=== PATIENT | female | born 1985 | race Caucasian/White ===

== ENCOUNTER 2019-04-30 15:23 | Emergency (ER) | payer BC, OTHER ==
[2019-04-30 15:27] VITALS: BP 124/70; PULSE 97; TEMP 98; BMI 22.7
[2019-04-30 16:41] LABS: BASO % 0.2 % (0-2.0); EOS % 0.4 % (0-4.5); HEMATOCRIT 36.5 % (32.4-45.2); HEMOGLOBIN 12.7 GM/dL (10.7-15.3); LYMPH % 21.1 % (8-40); MCHC 34.9 g/dl (32.0-36.0); MEAN PLT VOLUME 7.3 fl (7.5-11.1); MONO % 7.1 % (3.8-10.2); NEUT % 71.2 % (42.8-82.8); PLATELET COUNT 313 K/MM3 (134-434); RDW 12.4 % (11.6-15.6); WHITE BLOOD COUNT 8.2 K/mm3 (4.0-10.0)
[2019-04-30 16:44] LABS: EPI CELLS 1.7 /HPF (0-5/HPF); HYALINE CASTS 1 /lpf (0-8); URINE APPEARANCE CLEAR; URINE BACTERIA 64.1 /hpf (NEGATIVE); URINE BILIRUBIN NEGATIVE (NEGATIVE); URINE COLOR YELLOW; URINE GLUCOSE (UA) NEGATIVE (NEGATIVE); URINE KETONE NEGATIVE (NEGATIVE); URINE LEUK ESTERASE NEGATIVE (NEGATIVE); URINE NITRITE NEGATIVE (NEGATIVE); URINE PROTEIN NEGATIVE (NEGATIVE); URINE RBC 2 /hpf (0-4); URINE UROBILINOGEN 0.2 mg/dL (0.2-1.0); URINE WBC 1 /hpf (0-5)
--- NOTE | 2019-04-30 17:11 | PDOC ---
Attending Attestation - Resident Resident Name: Silas Birch - ED Attending Attestation I have performed the following: I have examined & evaluated the patient, The case was reviewed & discussed with the resident, I agree w/resident's findings & plan, Exceptions are as noted - HPI HPI: 04/30/19 18:08 Ms. Bland is a 34 y/o F with no pmh presenting with vaginal bleeding that started 1.5 hrs prior to arrival in the ER. Bleeding began while at work. When she went to the bathroom, she noted profuse bleeding with large blood clos. (+) cramping, rated 2/10 Denies fevers, nausea, vomiting, headache As far as she knows, her most recent ultrasound wa 6 days ago and was normal Patient has no hx of uti/sti. PMHx: as noted above ROS: as noted SHx: Denies tobacco use; no alcohol use; no rec drugs Allergies: NKDA - Physicial Exam PE: 04/30/19 17:11 GENERAL: The patient is in no acute distress. ENT: Ears normal, nares patent, oropharynx clear without exudates. Moist mucous membranes. NECK: Normal range of motion, supple LUNGS: Breath sounds equal, clear to auscultation bilaterally. No wheezes, and no crackles. HEART:Regular rate and rhythm, normal S1 and S2 without murmur, rub or gallop. ABDOMEN: Soft, nontender, normoactive bowel sounds. PELVIC: per Dr. Birch EXTREMITIES: Normal range of motion, no edema. NEUROLOGICAL: Cranial nerves II through XII grossly intact. Normal speech. No focal neurological deficits. SKIN: Warm, Dry, normal turgor, no rashes or lesions noted. 04/30/19 18:11 - Medical Decision Making 04/30/19 18:05 Laboratory Tests 04/30/19 04/30/19 04/30/19 16:20 16:20 16:20 Hgb 12.7 Hct 36.5 BUN 9.2 Creatinine 0.5 L Beta HCG, Quant 88336.9 Urine Blood Urine Nitrite Ur Leukocyte Esterase Urine WBC (Auto) Urine Bacteria (Auto) Blood Type O POSITIVE 04/30/19 16:20 Hgb Hct BUN Creatinine Beta HCG, Quant Urine Blood 2+ H Urine Nitrite Negative Ur Leukocyte Esterase Negative Urine WBC (Auto) 1 Urine Bacteria (Auto) 64.1 Blood Type 04/30/19 18:05 U/S: IUP 13 5/7, FHR: 154bpm, mniotic fluid unremarkable, left ovatian follicle/ cyst noted, Nonspecific partially exophytic 7 x 6.5 cm soft tissue structure wiht an irregular fluid component centrally which may be secondary to necrosis or degeneration (leiomyoma vs neoplasm) 04/30/19 18:[address] Thompson He would like this patient to be discharged to home Follow up tomorrow clinical impression: Vaginal bleeding in , initial presentation I discussed the physical exam findings, ancillary test results and final diagnoses with the patient. I answered all of the patient's questions. The patient was satisfied with the care received and felt comfortable with the discharge plan and treatment plan. The patient will call their primary care physician within 24 hours to arrange follow-up and will return to the Emergency Department with any new, persistant or worsening symptoms. She understands that it is extremely important that she sees her physician within 24-48 hours for a repeat visit, including repeat blood work.
--- NOTE | 2019-04-30 17:17 | PDOC ---
History of Present Illness - General Chief Complaint: Vaginal Bleeding Stated Complaint: 13 WEEKS/VAG BLEED Time Seen by Provider: 04/30/19 15:44 - History of Present Illness Initial Comments: 04/30/19 17:02 HPI: 34 y/o F with no pmh presenting with vaginal bleeding that started 1.5hrs ago. She was at work sitting down when she felt her pants wet. When she went to the bathroom, she noted profuse bleeding through her underwear and pants with large blood clots. She felt some cramping similar to period cramping that was only 2/10 on the pain scale. She denies fever, n/v, DUMONT, LH, dysuria. She follows with Dr Ingram and last followed up in clinic 6 days ago and US showed normal . Patient has no hx of uti/sti. No hx of miscarriage or . Vaginal vault with blood, or discharge. External cervical os partially open and able to insert distal half of my DIP joint. PMHx: as noted above ROS: as noted SHx: Denies tobacco use; no alcohol use; no rec drugs Allergies: NKDA ROS: GENERAL/CONSTITUTIONAL: No fever or chills. No weakness. HEAD, EYES, EARS, NOSE AND THROAT: No change in vision. No ear pain or discharge. No sore throat. CARDIOVASCULAR: No chest pain or shortness of breath RESPIRATORY: No cough, wheezing, or hemoptysis. GASTROINTESTINAL: No nausea, vomiting, diarrhea or constipation. GENITOURINARY: No dysuria, frequency, or change in urination. MUSCULOSKELETAL: No joint or muscle swelling or pain. No neck or back pain. SKIN: No rash NEUROLOGIC: No headache, vertigo, loss of consciousness, or change in strength/ sensation. ENDOCRINE: No increased thirst. No abnormal weight change HEMATOLOGIC/LYMPHATIC: No anemia, easy bleeding, or history of blood clots. ALLERGIC/IMMUNOLOGIC: No hives or skin allergy. PE: GENERAL: Awake, alert, and fully oriented, no acute distress HEAD: No signs of trauma, normocephalic, atraumatic EYES: EOMI, sclera anicteric, conjunctiva clear ENT: Auricles normal inspection, hearing grossly normal, nares patent, oropharynx clear without exudates. Moist mucosa NECK: Normal ROM, no lymphadenopathy LUNGS: No increased work of breathing, symmetrical chest rise, clear to auscultation bilaterally, no wheezes, crackles or rhonchi HEART: Regular rate and rhythm, normal S1 and S2, no murmurs, peripheral pulses 2+ and equal bilaterally. ABDOMEN: Soft, nondistended, nontender, normoactive bowel sounds. No guarding, no rebound. No masses. No CVAT GENITOURINARY: Nml appearing external genitalia, with absent lesions. Vaginal vault with blood, or discharge. External cervical os partially open and able to insert distal half of my DIP joint. Neg CMT on BM. Neg adenexal ttp, or mass palpated. MUSCULOSKELETAL: Normal inspection, FROM NEUROLOGICAL: Cranial nerves II through XII grossly intact. Normal speech, normal gait, no focal sensorimotor deficits SKIN: Warm, Dry, normal turgor, no rashes or lesions noted Past History - Past Medical History Allergies/Adverse Reactions: Allergies Allergy/AdvReac Type Severity Reaction Status Date / Time No Known Allergies Allergy Verified 04/30/19 15:27 COPD: No - Psycho Social/Smoking Cessation Hx Smoking History: Never smoked *Physical Exam - Vital Signs Last Vital Signs Temp Pulse Resp BP Pulse Ox 98 F 97 H 18 124/70 100 04/30/19 15:25 04/30/19 15:25 04/30/19 15:25 04/30/19 15:25 04/30/19 15:25 ED Treatment Course - LABORATORY CBC & Chemistry Diagram: 04/30/19 16:20 04/30/19 16:20 - ADDITIONAL ORDERS Additional order review: Laboratory Results 04/30/19 16:20 Urine Color Yellow Urine Appearance Clear Urine pH 5.0 Ur Specific [place] 1.008 L Urine Protein Negative Urine Glucose (UA) Negative Urine Ketones Negative Urine Blood 2+ H Urine Nitrite Negative Urine Bilirubin Negative Urine Urobilinogen 0.2 Ur Leukocyte Esterase Negative Urine WBC (Auto) 1 Urine RBC (Auto) 2 Urine Casts (Auto) 1 U Epithel Cells (Auto) 1.7 Urine Bacteria (Auto) 64.1 04/30/19 16:20 RBC 4.10 MCV 89.0 MCHC 34.9 RDW 12.4 MPV 7.3 L Neutrophils % 71.2 Lymphocytes % 21.1 Monocytes % 7.1 Eosinophils % 0.4 Basophils % 0.2 - RADIOLOGY Radiology Studies Ordered: Category Date Time Status <14WKS US [US] Stat Ultrasound 04/30/19 16:09 Ordered Medical Decision Making - Medical Decision Making 04/30/19 17:17 34 y/o F with no pmh presenting with vaginal bleeding that started 1.5hrs prior to presentation. VSS, AF. PE with blood in vaginal vault and external cervical os partially open and able to insert distal half of my DIP joint. DDx includes threatened vs complete vs incomplete -t&s, ua, cbc, cmp, TVUS, beta quant 04/30/19 18:18 TVUS iwth viable IUP 13w5d and with nonspecific partially exophytic 7*6.5cm soft tissue structure which may represent degenerating leiomyoma vs neoplasm Dr Ingram called and recommends following up in clinic discussed with patient plan and she is agreeable. all questions answered Discharge - Discharge Information Problems reviewed: Yes Clinical Impression/Diagnosis: Vaginal bleeding affecting early - Follow up/Referral Referrals: Oskar Thompson MD [Primary Care Provider] - - Patient Discharge Instructions Patient Printed Discharge Instructions: DI for Vaginal Bleeding During Additional Instructions: Additional Instructions: Please return to the emergency department with any new or worsening symptoms or concerns including worsening pain, fainting, chest pain. Please follow up with your Ob doctor tomorrow for continued bleeding Please continue to take vitamins - Post Discharge Activity
[2019-04-30 17:34] LABS: BLOOD UREA NITROGEN 9.2 mg/dL (7-18); CALCIUM 9.4 mg/dL (8.5-10.1); CREATININE 0.5 mg/dL (0.55-1.3); POTASSIUM 3.7 mmol/L (3.5-5.1)
== END 2019-04-30 18:42 | disposition home or self-care (01) ==
LOC: JER 15:23
DX: O26.891 Other specified pregnancy related conditions, first trimester (principal); N93.9 Abnormal uterine and vaginal bleeding, unspecified
CPT/HCPCS: 36415; 76801-TC; 80048; 81003; 84702; 85025; 86850; 86900; 86901; 87077; 87086; 99283-25

== ENCOUNTER 2019-05-01 06:12 | Day surgery (SDC) | payer BC, OTHER ==
[2019-05-01] MEDS ORDERED: SODIUM CHLORIDE 1,000 ML IV STA (06:33)
--- NOTE | 2019-05-01 06:45 | PDOC ---
History of Present Illness - General Stated Complaint: VAGINAL BLEEDING - History of Present Illness Initial Comments: 05/01/19 06:35 34F, first , seen earlier today for threatened/inevitable ( open cervix on pelvic exam and bleeding) back now after witnessing loss of fetus at home a few hours after being discharged. The patient and her are very distraught and tearful as they say they were told the was "fine" and to follow up with OBGYN Dr. Thompson tomorrow. Patient also complains of abdominal pain, has lost significant amount of blood. Past History - Past Medical History Allergies/Adverse Reactions: Allergies Allergy/AdvReac Type Severity Reaction Status Date / Time No Known Allergies Allergy Verified 05/01/19 06:49 Home Medications: Ambulatory Orders NK [No Known Home Medication] 05/01/19 COPD: No - Psycho Social/Smoking Cessation Hx Smoking History: Never smoked Review of Systems - Review of Systems Able to Perform ROS?: Yes Constitutional: No: Symptoms Reported HEENTM: No: Symptoms Reported Respiratory: No: Symptoms reported Cardiac (ROS): No: Symptoms Reported ABD/GI: Yes: See HPI Musculoskeletal: No: Symptoms Reported Integumentary: No: Symptoms Reported Neurological: No: Symptoms reported All Other Systems: Reviewed and Negative *Physical Exam - Physical Exam General Appearance: Yes: Nourished, Appropriately Dressed, Mild Distress HEENT: positive: EOMI, CARMELO, Normal ENT Inspection Respiratory/Chest: positive: Lungs Clear, Normal Breath Sounds. negative: Chest Tender, Respiratory Distress Cardiovascular: positive: Regular Rhythm, S1, S2, Tachycardia Gastrointestinal/Abdominal: positive: Normal Bowel Sounds, Tender (suprapubic), Flat, Soft Musculoskeletal: positive: Normal Inspection. negative: CVA Tenderness Extremity: positive: Normal Capillary Refill, Normal Inspection, Normal Range of Motion Integumentary: positive: Normal Color, Dry, Warm ED Treatment Course - LABORATORY CBC & Chemistry Diagram: 05/01/19 06:40 - RADIOLOGY Radiology Studies Ordered: Category Date Time Status TRANSVAGINAL US PREG [US] Stat Ultrasound 05/01/19 06:32 Ordered Medical Decision Making - Medical Decision Making 05/01/19 06:53 34F with inevitable earlier today presenting with symptoms of miscarriage tonight. Claim wasn't told about inevitability of . Will obtain TVUS to r/o retain products of conception, and cbc to compare with earlier one and fluids for tachycardia. 05/01/19 07:11 Patient signed out to Day Team Discharge - Discharge Information Problems reviewed: Yes Clinical Impression/Diagnosis: Miscarriage - Follow up/Referral - Patient Discharge Instructions - Post Discharge Activity
[2019-05-01 06:53] VITALS: BMI 22.8
[2019-05-01 07:02] LABS: BASO % 0.1 % (0-2.0); EOS % 0.3 % (0-4.5); HEMATOCRIT 33.2 % (32.4-45.2); HEMOGLOBIN 11.6 GM/dL (10.7-15.3); LYMPH % 18.5 % (8-40); MCH 31.1 pg (25.7-33.7); MCHC 35.1 g/dl (32.0-36.0); MEAN CELL VOLUME 88.6 fl (80-96); MEAN PLT VOLUME 7.4 fl (7.5-11.1); MONO % 5.5 % (3.8-10.2); NEUT % 75.6 % (42.8-82.8); PLATELET COUNT 268 K/MM3 (134-434); RBC 3.74 M/mm3 (3.60-5.2); RDW 12.1 % (11.6-15.6); WHITE BLOOD COUNT 8.1 K/mm3 (4.0-10.0)
--- NOTE | 2019-05-01 07:10 | PDOC ---
Attending Attestation - Resident Resident Name: Mark Garcia - ED Attending Attestation I have performed the following: I have examined & evaluated the patient, The case was reviewed & discussed with the resident, I agree w/resident's findings & plan, Exceptions are as noted - HPI HPI: 05/01/19 07:48 See resident HPI - Physicial Exam PE: 05/01/19 07:48 Agree with exam as documented by resident - Medical Decision Making 05/01/19 07:49 Seen earlier today found to have IUP, vaginal bleeding with open OS. At home this evening, pt had continued bleeding and passed POC f/u cbc f/u tvus for rpoc Will see Dr. Welsh today
--- NOTE | 2019-05-01 08:47 | PDOC ---
*Physical Exam - Vital Signs Last Vital Signs Temp Pulse Resp BP Pulse Ox 97.6 F 93 H 20 119/80 100 05/01/19 06:30 05/01/19 06:30 05/01/19 06:30 05/01/19 06:30 05/01/19 06:30 - Physical Exam 05/01/19 11:36 General Appearance: Nourished. No Apparent Distress HEENT: No Pharyngeal Erythema, Tonsillar Exudate, Tonsillar Erythema Neck: No Cervical Lymphadenopathy Respiratory/Chest: Lungs Clear, Normal Breath Sounds. No Crackles, Rales, Rhonchi, Wheezing Cardiovascular: Regular Rhythm, Regular Rate. No Murmur, Gallops, Rubs Gastrointestinal/Abdominal: Normal Bowel Sounds, Soft. Discomfort with palpation in the lower abdomen. No Guarding, Rebound, Musculoskeletal: No CVA Tenderness Extremity: Normal Capillary Refill Integumentary: Normal Color, Dry, Warm Neurologic: Fully Oriented, Alert, Normal Mood/Affect, Normal Response, ED Treatment Course - LABORATORY CBC & Chemistry Diagram: 05/01/19 06:40 - ADDITIONAL ORDERS Additional order review: 05/01/19 06:40 RBC 3.74 MCV 88.6 MCHC 35.1 RDW 12.1 MPV 7.4 L Neutrophils % 75.6 Lymphocytes % 18.5 Monocytes % 5.5 Eosinophils % 0.3 Basophils % 0.1 - Medications Given in the ED: ED Medications Discontinued Medications Generic Name Dose Route Start Last Admin Trade Name Freq PRN Reason Stop Dose Admin Sodium Chloride 1,000 mls @ 1,000 mls/hr 05/01/19 06:33 05/01/19 06:53 Normal Saline - IV 05/01/19 07:32 1,000 mls/hr ASDIR STA Administration ED Progress Note - Progress Note Progress Note: 05/01/19 11:38 The patient is a 34 year old female who presented for vaginal bleeding and possible miscarriage. The patient was recently seen in the ED for vaginal bleeding and re-presented to the ED after passing products of conception complaining of continued vaginal bleeding and lower abdominal pain. The patient is pending a US to evaluate further. Medical Decision Making - Medical Decision Making 05/01/19 11:31 US demonstrates retained products of conception as read by our radiologist. The patient continues to experience vaginal bleeding and abdominal pain. We discussed the case with Dr. Thompson who will take the patient for d&c today. The patient will be admitted for further management. We discussed the plan with the patient who voiced understanding and is agreeable with the plan. Discharge - Discharge Information Problems reviewed: Yes Clinical Impression/Diagnosis: Miscarriage - Follow up/Referral - Patient Discharge Instructions - Post Discharge Activity
[2019-05-01] MEDS ORDERED: ACETAMINOPHEN 1000 MG/100 ML VIAL (NON FORMULARY) IVPB ONE (09:23)
[2019-05-01] MEDS ORDERED: ACETAMINOPHEN INJECTION 100 ML IVPB ONE (09:44)
[2019-05-01] MEDS ORDERED: OXYTOCIN 20 UNITS in 0.9% NS 20 UNIT/1,000 ML INFUS.BAG IV ONE (10:43)
[2019-05-01] MEDS ORDERED: OXYTOCIN 10 UNITS/ML VIAL ONE (11:17)
[2019-05-01 11:49] LABS: INR 1.03 (0.83-1.09); PROTHROMBIN TIME (PATIENT) 12.2 SEC (9.7-13.0)
[2019-05-01 11:51] LABS: ACTIVATED PTT 26.6 SECONDS (25.2-36.5)
[2019-05-01] MEDS ORDERED: SUCCINYLCHOLINE CHLORIDE 200 MG/10 ML SYRINGE ONE (13:28)
[2019-05-01] MEDS ORDERED: MIDAZOLAM HCL 2 MG/2 ML SINGLE DOSE VIAL ONE (13:28)
[2019-05-01] MEDS ORDERED: PROPOFOL 20 ML ONE (13:28)
[2019-05-01] MEDS ORDERED: DEXAMETHASONE SOD PHOSPHATE 4 MG/1 ML VIAL ONE (13:28)
[2019-05-01] MEDS ORDERED: KETOROLAC TROMETHAMINE 30 MG/1 ML VIAL ONE (13:28)
[2019-05-01] MEDS ORDERED: LIDOCAINE HCL/PF 2% SDV 5ML VIAL ONE (13:28)
--- NOTE | 2019-05-01 13:45 | HP ---
Past Medical History - Primary Care Physician PCP:: Oskar Thompson - Admission Chief Complaint: incomplete , vaginal bleeding History of Present Illness: 34 yo f with hx of spontaneous and retained POC, c/o vaginal bleeding with clots and sever cramps, admitted for suction d&C , procedure discussed , risks associated with procedure has explained to patient, ulternatives and no tx discussed History Source: Patient Limitations to Obtaining History: No Limitations - Past Surgical History Hx Myomectomy: No Hx Transabdominal Cerclage: No - Smoking History Smoking history: Never smoked Have you smoked in the past 12 months: No - Alcohol/Substance Use Hx Alcohol Use: No History of Substance Use: reports: None - Social History Usual Living Arrangement: Yes: With Spouse History of Recent Travel: No Home Medications - Allergies Allergies/Adverse Reactions: Allergies Allergy/AdvReac Type Severity Reaction Status Date / Time No Known Allergies Allergy Verified 05/01/19 06:49 - Home Medications Home Medications: Ambulatory Orders NK [No Known Home Medication] 05/01/19 Review of Systems - Review of Systems Constitutional: reports: Weakness Eyes: reports: No Symptoms HENT: reports: No Symptoms Neck: reports: No Symptoms Cardiovascular: reports: No Symptoms Respiratory: reports: No Symptoms Gastrointestinal: reports: No Symptoms Genitourinary: reports: Vaginal Bleeding Breasts: reports: No Symptoms Reported Musculoskeletal: reports: No Symptoms Integumentary: reports: No Symptoms Neurological: reports: No Symptoms Endocrine: reports: No Symptoms Psychiatric: reports: No Symptoms Physical Exam-[employer] Vital Signs: Vital Signs Temperature 97.5 F L 05/01/19 13:07 Pulse Rate 96 H 05/01/19 13:07 Respiratory Rate 20 05/01/19 13:07 Blood Pressure 102/58 L 05/01/19 13:07 O2 Sat by Pulse Oximetry (%) 100 05/01/19 08:59 Constitutional: Yes: Well Nourished, No Distress, Calm Eyes: Yes: WNL, Conjunctiva Clear, EOM Intact HENT: Yes: WNL, Atraumatic, Normocephalic Neck: Yes: WNL, Supple, Trachea Midline Cardiovascular: Yes: WNL, Regular Rate and Rhythm Respiratory: Yes: WNL, Regular, CTA Bilaterally Gastrointestinal: Yes: WNL ...Rectal Exam: Yes: WNL Renal/: Yes: WNL External Genitalia: Yes: Normal Vaginal Exam: Yes: Bleeding (os open with clot at cervical OS) Uterus: Yes: Enlarged (tender) Breast(s): Yes: WNL Musculoskeletal: Yes: WNL Extremities: Yes: WNL Integumentary: Yes: WNL Neurological: Yes: WNL, Alert, Oriented ...Motor Strength: WNL Psychiatric: Yes: WNL, Alert, Oriented Labs: CBC, BMP 05/01/19 06:40 Problem List - Problem (1) Incomplete Code(s): O03.4 - INCOMPLETE SPONTANEOUS WITHOUT COMPLICATION Assessment/Plan suction D&C
[2019-05-01] MEDS ORDERED: ceFAZolin SODIUM 1 GM VIAL IVPB ONE (14:02)
[2019-05-01] MEDS ORDERED: ceFAZolin SODIUM 1 GM VIAL ONE (14:03)
[2019-05-01] MEDS ORDERED: ONDANSETRON 4 MG/2 ML VIAL IVPUSH PRN ×2 (14:18→14:24)
[2019-05-01] MEDS ORDERED: IBUPROFEN 800 MG/8 ML IJ IVPB PRN (14:24)
[2019-05-01] MEDS ORDERED: IBUPROFEN 600 MG TABLET (FP) PO PRN (14:24)
[2019-05-01] MEDS ORDERED: oxyCODONE HCL 5 MG TABLET PO PRN (14:24)
[2019-05-01] MEDS ORDERED: ELECTROLYTE-148 SOLN 1,000 ML IV SCH (14:30)
[2019-05-01] MEDS ORDERED: LACTATED RINGERS SOLUTION 1,000 ML IV SCH (14:30)
[2019-05-01 16:56] VITALS: TEMP 98
[2019-05-01 17:45] VITALS: BP 114/65; PULSE 100
--- NOTE | 2019-05-04 10:31 | PATH ---
Surgical Pathology Report Patient Name: VINCENT BABCOCK [facility]. Rec. #: [id number] /Age/Gender: 1985 (Age: 34) / F Account: [id number] Location: AMBULATORY SURG Taken: 05/01/2019 Received: 05/01/2019 Reported: 05/04/2019 Physicians: Oskar Thompson M.D. Specimen(s) Received A: PRODUCTS OF CONCEPTION B: FETUS, 13.5 WEEKS GESTATION Clinical History Spontaneous , vaginal bleeding 13.5 weeks gestation Final Diagnosis A. PRODUCTS OF CONCEPTION, DILATION AND CURETTAGE: IMMATURE CHORIONIC VILLI AND DECIDUA CONSISTENT WITH PRODUCTS OF CONCEPTION. CHROMOSOMAL STUDIES ARE PENDING AND WILL BE REPORTED SEPARATELY AN ADDENDUM. B. FETUS, 13.5 WEEKS GESTATION, DELIVERY: 34 G, IMMATURE, PHENOTYPICALLY MALE FETUS. CONSISTENT WITH 12-13 WEEKS AGE OF GESTATION. CROWN TO RUMP LENGTH, 8.5 CM CROWN TO HEEL LENGTH, 11.3 CM FOOT LENGTH, 1.1 CM EXTERNAL EXAMINATION SHOWS CLEFT LIP, MACROGLOSSIA, AND LOW SET EARS. SEE COMMENT. Comment: Suggest correlation with pending chromosomal studies. Electronically Signed Khalida Ding M.D. Gross Description A. Received fresh labeled "products of conception," is a 20.0 x 16.0 x 1.8 cm aggregate of red soft tissue fragments. Villous tissue is identified. No somatic tissue is identified. A premium service representative portion is placed in RPMI solution and sent for chromosomal studies. An additional premium service representative section is submitted in one cassette. B. Received in formalin labeled with the patient's name and indicated on the requisition to be a fetus at 13.5 weeks gestation, is a 34 g intact fetus measuring 8.5 cm from crown to rump and 11.3 cm from crown to heel. Each foot measures 1.1 cm from heel to toe and the fetus has a head circumference of 8.1 cm. The eyelids are fused shut. The anus and nares are patent. The fetus displays a cleft lip and the palate appears intact. The fetus displays macroglossia. The ears are low set. The lumbosacral spine is intact. The skin is mildly macerated. The limbs appear normal, without any defects. Each hand and foot displays 5 digits. The external genitalia are that of a male. There is no umbilical cord attached to the fetus. No sections are submitted, gross only. 05/01/2019 [facility]05/01/2019
--- NOTE | 2019-05-05 12:33 | OP ---
DATE OF OPERATION: 05/01/2019 PREOPERATIVE DIAGNOSIS: Incomplete . POSTOPERATIVE DIAGNOSIS: Incomplete . PROCEDURE: Suction dilation and curettage. SURGEON: Oskar Thompson MD ANESTHESIA: General. ESTIMATED BLOOD LOSS: 500 mL. DESCRIPTION OF PROCEDURE: Patient was taken to the operating room under adequate general anesthesia. Abdomen and perineum were prepped and draped. Examination under anesthesia revealed large blood clot in the vault. Cervix was open with a blood clot and products of conception sitting at the os. Uterus was enlarged approximately 12 weeks' size. Adnexa, no masses were palpable. Then with the weighted speculum in the vagina, anterior lip of the cervix was grasped with a single-tooth tenaculum and then cervix was opened. Did not require dilation. Then forceps was introduced into the uterine cavity and then the placenta tissue and products of conception was removed from the os then suction curette was inserted into uterine cavity and the contents was suctioned. There was a large amount of bleeding noted during the procedure, which Pitocin was given and bleeding stopped. Patient tolerated the procedure well, left the OR in good condition. OSKAR THOMPSON M.D. [id number]
== END 2019-05-01 18:55 | disposition home or self-care (01) ==
LOC: JER 06:12 → JASUSAT 10:47
PROVIDERS: ATTEND Obstetrics & Gynecology
PROC: 10D17ZZ Extraction of Products of Conception, Retained, Via Natural or Artificial Opening (ICD-10-PCS; principal; 2019-05-01 13:30)
DX: O03.4 Incomplete spontaneous abortion without complication (principal)
CPT/HCPCS: 36415; 76815-TC; 85025; 85610; 85730; 86850; 86900; 86901; 88300-TC; 88305-TC; 94760; 99285-25; J0131; J7030